=== PATIENT | male | born 2005 | race Hispanic/Latino ===

== ENCOUNTER 2025-01-20 18:50 | Emergency (ER) | payer BC ==
[~2025-01-20] VITALS: Ht 180.3 cm; Wt 81.8 kg
[2025-01-20] MEDS: MORPHINE 4 MG/ML 1 ML VIAL IM ONE (19:33)
[2025-01-20] MEDS: LIDOCAINE 2% MDV 20 ML VIAL SC ONE (19:55)
[2025-01-20] MEDS ORDERED: IBUP80TA PO (21:33)
[2025-01-20 21:47] VITALS: BP 143/91; TEMP 97.2; O2SAT 98
== END 2025-01-20 21:48 | disposition home or self-care (01) ==
LOC: M ED 18:50
DX: S93.121A Dislocation of metatarsophalangeal joint of right great toe, initial encounter (principal); S82.62XA Displaced fracture of lateral malleolus of left fibula, initial encounter for closed fracture; R22.41 Localized swelling, mass and lump, right lower limb; M25.774 Osteophyte, right foot; X50.0XXA Overexertion from strenuous movement or load, initial encounter; Y92.9 Unspecified place or not applicable; Y93.67 Activity, basketball; Y99.9 Unspecified external cause status; Z79.1 Long term (current) use of non-steroidal anti-inflammatories (NSAID)

== ENCOUNTER → 2025-02-15 | Outpatient (CLI) | payer BC ==
[~2025-02-15] MED LIST: IBUP80TA PO
== END ==
LOC: M SOG 07:45
PROVIDERS: ATTEND Physician Assistant
DX: S93.121A Dislocation of metatarsophalangeal joint of right great toe, initial encounter (principal)